=== PATIENT | male | born 1975 | race Caucasian/White ===

== ENCOUNTER 2017-01-01 12:04 | Emergency (ER) | payer OTHER ==
[2017-01-01] MEDS ORDERED: Lidocaine 1% 10 MG/ML - 20 ML VIAL SUBCUT ONE (12:19)
[2017-01-01 12:23] VITALS: RESP 16; TEMP 98
--- NOTE | 2017-01-01 12:49 | DI ---
XR WRIST COMPLETE MIN 3VW,01/01/2017 12:19 PM: Clinical History: Injury Previous Exam: None at this facility. Findings: 3 views of the right wrist are obtained, and demonstrate anatomic alignment without acute fracture. T here is an old ulnar styloid avulsion fracture noted. Carpal bones are unremarkable. There is some mild irregularity of the radial cortex. The surrounding soft tissues are unremarkable. Impression: Mild irregularity of the radial cortex involving the distal diaphysis, and avulsion fracture of the r ight ulnar styloid is most consistent with a prior injury. No acute fractures.
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
== END 2017-01-01 13:15 | disposition home or self-care (01) ==
LOC: ER 12:04
DX: S51.812A Laceration without foreign body of left forearm, initial encounter (principal); S63.501A Unspecified sprain of right wrist, initial encounter; M79.601 Pain in right arm; W23.0XXA Caught, crushed, jammed, or pinched between moving objects, initial encounter
CPT/HCPCS: 12002; 73110; 99282; J2001

== ENCOUNTER 2017-02-26 20:05 | Observation (INO) | payer OTHER ==
[2017-02-26] MEDS ORDERED: Sodium Chloride 0.9% 1,000 ML PRIMARY IV ONE (20:13)
[2017-02-26] MEDS ORDERED: fentaNYL Inj 100 MCG/2 ML VIAL IVP ONE ×3 (20:13→20:30)
[2017-02-26] MEDS ORDERED: NORMAL SALINE 10 ML SYRINGE FLUSH IVP PRN (20:13)
[2017-02-26] MEDS ORDERED: ONDANSETRON 4 MG/2 ML VIAL IVP ONE (20:16)
[2017-02-26] MEDS ORDERED: ONDANSETRON 4 MG/2 ML VIAL ONE (20:16)
[2017-02-26] MEDS ORDERED: fentaNYL Inj 100 MCG/2 ML VIAL ONE (20:17)
[2017-02-26 20:25] LABS: BASOPHILS # (AUTO) 0.07 10*3/UL; BASOPHILS % (AUTO) 0.5 % (0-1); EOSINOPHILS # (AUTO) 0.01 10*3/UL; EOSINOPHILS % (AUTO) 0.1 % (0-8); HEMATOCRIT 44.7 % (42.0-52.0); HEMOGLOBIN 15.9 g/dL (14.0-18.0); LYMPHOCYTES # (AUTO) 1.98 10*3/uL; MEAN CORPUSCULAR HEMOGLOBIN 33.1 PG (27-31); MEAN CORPUSCULAR HGB CONC 35.6 g/dL (33-37); MEAN CORPUSCULAR VOLUME 92.9 FL (80-90); MEAN PLATELET VOLUME 9.3 FL (7.4-12.2); MONOCYTES # (AUTO) 1.56 10*3/UL (0.3-0.8); MONOCYTES % (AUTO) 10.4 % (5-15); NEUTROPHILS # (AUTO) 11.27 10*3/UL; NEUTROPHILS % (AUTO) 75.3 % (50-80); RED BLOOD COUNT 4.81 10^6/uL (4.70-6.10)
[2017-02-26 20:26] LABS: PLATELET MORPHOLOGY COMMENT NORMAL MORPHOLOGY (NORM); RBC MORPHOLOGY COMMENT NORMAL MORPHOLOGY (NORM); WBC MORPHOLOGY COMMENT NORMAL MORPHOLOGY (NORM)
[2017-02-26 20:30] LABS: BLOOD UREA NITROGEN 10 mg/dL (7-22); BUN/CREATININE RATIO 11.11 (6-20); CALCIUM 9.2 mg/dL (8.7-10.7); EST GLOMERULAR FILTRATION > 60 (>60 ml/min/1.73m(2)); SERUM ALBUMIN 4.7 g/dL (3.5-4.8)
--- NOTE | 2017-02-26 20:32 | EKG ---
[address] [address] Measurements Intervals [place] Rate: 88 P: 21 WI: 191 QRS: 30 QRSD: 103 T: 14 QT: 356 QTc: 401 Interpretive Statements SINUS RHYTHM INCOMPLETE RIGHT BUNDLE BRANCH BLOCK [90+ ms QRS DURATION, TERMINAL R IN V1/V2, 40+ ms S IN I/aVL/V4/V5/V6] INTERPRETATION BASED ON A DEFAULT AGE OF 40 YEARS No prior study available for comparison and no acute ST-T changes to suggest acute injury. Electronically Signed On 02-27-17 08:02:12 MDT by Demond Chávez MD [email or web address]
[2017-02-26] MEDS ORDERED: HYDROmorphone 2 MG/1 ML ONE (20:35)
[2017-02-26] MEDS ORDERED: HYDROmorphone 2 MG/1 ML IVP ONE ×2 (20:36→22:36)
[2017-02-26] MEDS ORDERED: LORazepam 2 MG/1 ML VIAL ONE (21:03)
[2017-02-26] MEDS ORDERED: LORazepam 2 MG/1 ML VIAL IVP ONE ×2 (21:05→21:37)
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
[2017-02-26] MEDS ORDERED: Acetaminophen 1000mg Inj 100 ML IV ONE (23:01)
[2017-02-26] MEDS ORDERED: KETOROLAC 15 MG/1 ML VIAL IVP ONE (23:01)
[2017-02-26] MEDS ORDERED: Acetaminophen 1000mg Inj 1,000 MG in Premix 1 BAG IV ONE (23:02)
[2017-02-26] MEDS ORDERED: KETOROLAC 15 MG/1 ML VIAL ONE (23:02)
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
[2017-02-27] MEDS ORDERED: MORPHINE SULFATE/PF PCA 30 MG/30 ML IV SCH (00:05)
[2017-02-27] MEDS ORDERED: LIDOCAINE W/ SODIUM BICARB 0.5 ML SYR SUBD PRN (00:05)
[2017-02-27] MEDS ORDERED: NORMAL SALINE 10 ML SYRINGE FLUSH IVP PRN (00:05)
[2017-02-27] MEDS ORDERED: NALOXONE 0.4 MG/1 ML VIAL IVP PRN (00:05)
[2017-02-27] MEDS ORDERED: Sodium Chloride 0.9% 500 ML ONE (00:54)
[2017-02-27] MEDS: KETOROLAC 15 MG/1 ML VIAL IVP SCH ×2 (05:27→11:17)
[2017-02-27] MEDS: oxyCODONE IR Tab 5 MG TAB PO PRN ×2 (06:05→10:22)
[2017-02-27] MEDS ORDERED: Acetaminophen 1000mg Inj 1,000 MG in Premix 1 BAG IV SCH (07:00)
--- NOTE | 2017-02-27 10:19 | DI ---
History: Rib fractures Comparison: 02/26/2017 Poor inspiration. Rib fractures demonstrated on a CT scan of February 26, 2017 are not visualized on this plain film stud y. Since the previous single view chest film performed on February 26, 2017, increased density has become evident in the left lung base, likely representing pulmonary contusion/hemorrhage, this appearance co uld also be consistent with pneumonia. There is very mild blunting of the posterior sulci, likely representing small hemothoraces. Note is m alvin to previous study was a single view projection, and direct comparison is possible. Impression: Increased density in the left lung base which has developed since previous chest film of February 26, 2 017. This likely represents pulmonary contusion, although pneumonia cannot be excluded. Blunting of the posterior sulci, likely representing small hemothoraces
[2017-02-27] MEDS: Sodium Chloride 0.9% 500 ML PRIMARY IV SCH ×2 (10:23→13:19)
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
[2017-02-27] MEDS: oxyCODONE/APAP 7.5/325 Tab 1 TAB TAB PO PRN ×4 (13:28→21:24)
[2017-02-27] MEDS: Ondansetron ODT Tab 4 MG TAB PO PRN (14:40)
[2017-02-27] MEDS: Naproxen Tab 500 MG TAB PO SCH (17:08)
[2017-02-28] MEDS: oxyCODONE/APAP 7.5/325 Tab 1 TAB TAB PO PRN ×3 (00:56→10:45)
[2017-02-28] MEDS ORDERED: PANTOPRAZOLE 40 MG TABLET PO SCH (07:00)
[2017-02-28 07:12] VITALS: RESP 18; TEMP 97
[2017-02-28] MEDS: Naproxen Tab 500 MG TAB PO SCH (07:15)
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
[2017-02-28] MEDS: Ondansetron ODT Tab 4 MG TAB PO PRN (10:44)
== END 2017-02-28 11:03 | disposition home or self-care (01) ==
LOC: ER 20:05 → MED/SURG 23:19
PROVIDERS: ADMIT Surgery; ATTEND Surgery
DX: S22.43XA Multiple fractures of ribs, bilateral, initial encounter for closed fracture (principal); V86.59XA Driver of other special all-terrain or other off-road motor vehicle injured in nontraffic accident, initial encounter; S27.321A Contusion of lung, unilateral, initial encounter; Z72.0 Tobacco use
CPT/HCPCS: 70450; 71010; 71020; 71260; 72125; 74177; 80053; 80320; 85025; 85610; 86850; 86900; 86901; 93005; 93010; 94150 ×2; 94761 ×2; 96374; 96375; 96376; 99284 ×2; J0131 ×2; J1170; J1885 ×2; J2060; J2270; J2405; J3010 ×2; J7030; J7040